=== PATIENT | female | born 1945 | race Caucasian/White ===

== ENCOUNTER → 2016-12-29 | Outpatient (CLI) | payer OTHER | LOC: US 13:21 | DX: E05.30 Thyrotoxicosis from ectopic thyroid tissue without thyrotoxic crisis or storm (principal); E04.1 Nontoxic single thyroid nodule | CPT/HCPCS: 76536 ==

== ENCOUNTER → 2021-01-15 | Outpatient (CLI) | payer OTHER | LOC: KOH-I 10:05 | DX: F17.210 Nicotine dependence, cigarettes, uncomplicated (principal); R91.1 Solitary pulmonary nodule | CPT/HCPCS: 71271 ==

== ENCOUNTER → 2021-02-27 | Outpatient (CLI) | payer OTHER | LOC: EXRD 02-04 13:00 | DX: E04.9 Nontoxic goiter, unspecified (principal); E04.2 Nontoxic multinodular goiter | CPT/HCPCS: 76536 ==

== ENCOUNTER → 2022-02-06 | Outpatient (CLI) | payer OTHER | LOC: KOH-I 12:33 | DX: F17.210 Nicotine dependence, cigarettes, uncomplicated (principal); R91.8 Other nonspecific abnormal finding of lung field | CPT/HCPCS: 71271 ==

== ENCOUNTER → 2022-02-18 | Outpatient (CLI) | payer OTHER | LOC: KOH-I 12:36 | DX: E04.2 Nontoxic multinodular goiter (principal) | CPT/HCPCS: 76536 ==